=== PATIENT | female | born 1990 | race Caucasian/White ===

== ENCOUNTER 2018-04-02 06:57 | Inpatient (IN) | payer BC ==
[2018-04-02] MEDS ORDERED: METHYLERGONOVINE 0.2 MG/ML 1 ML AMP IM PRN (07:15)
[2018-04-02] MEDS ORDERED: OXYTOCIN 10 UNIT/ML 1 ML VIAL IM PRN (07:15)
[2018-04-02] MEDS ORDERED: OXYTOCIN 20 UNITS/1000 ML NS 1,000 ML IV SCH ×2 (07:15→15:45)
[2018-04-02] MEDS ORDERED: CARBOPROST TROMETHAMINE 250 MCG/ML 1 ML AMP IM PRN (07:15)
[2018-04-02] MEDS ORDERED: LIDOCAINE 0.5% (PF) 5 MG/ML (50 ML SDV) SQ PRN (07:15)
[2018-04-02] MEDS ORDERED: TERBUTALINE 1 MG/ML VIAL SQ PRN (07:15)
[2018-04-02 07:23] VITALS: BMI 25.0
[2018-04-02] MEDS: LACTATED RINGERS 1,000 ML IV SCH ×3 (07:30→15:09)
[2018-04-02 08:03] LABS: Basophils % (A) 0 %; Eosinophils # (A) 0.1 k/uL (0-0.7); Eosinophils % (A) 2 %; HCT 38.8 % (34.0-46.0); HGB 12.6 gm/dL (11.4-16.0); Lymphocytes # (A) 1.2 k/uL (1.0-4.8); Lymphocytes % (A) 18 %; MCH 30.2 pg (25.0-35.0); MCHC 32.4 g/dL (31.0-37.0); MCV 93.4 fL (80.0-100.0); Mean Platelet Volume 8.4; Monocytes # (A) 0.3 k/uL (0-1.0); Monocytes % (A) 5 %; Neutrophils % (A) 74 %; Platelet Count 167 k/uL (150-450); RBC 4.15 m/uL (3.80-5.40); RDW 14.8 % (11.5-15.5); WBC 6.7 k/uL (3.8-10.6)
--- NOTE | 2018-04-02 11:46 | P.HPOB ---
History of Present Illness H&P Date: 04/02/18 Chief Complaint: IUP at 39/one sevenths weeks, elective induction This is a very pleasant 28-year-old 2 para 0010 at 39 and one sevenths weeks that presents to labor and delivery for elective induction of labor. Patient lives greater than an hour away with favorable cervix we elected induction. Patient has been receiving routine care since the first trimester with myself. She has been without complaints. She is noting good movement, no contractions, no vaginal bleeding or loss of fluid. On blood work showed a blood type of O+, rubella immune, RPR nonreactive, hepatitis B surface antigen negative, HIV negative, she did pass her 1 hour Glucola screen, and received her Tdap Vaccination on 01/25, group beta strep was negative on 03/09. Review of Systems Constitutional: Denies chills, Denies fatigue, Denies fever Cardiovascular: Reports leg edema Respiratory: Denies cough, Denies dyspnea Gastrointestinal: Denies constipation, Denies diarrhea, Denies nausea, Denies vomiting Past Medical History Past Medical History: No Reported History History of Any Multi-Drug Resistant Organisms: None Reported Past Surgical History: No Surgical Hx Reported Past Anesthesia/Blood Transfusion Reactions: No Reported Reaction Past Psychological History: No Psychological Hx Reported Smoking Status: Never smoker Past Drug Use History: None Reported - Past Family History Mother Family Medical History: Cancer Additional Family Medical History / Comment(s): breast and panceratic. Medications and Allergies Home Medications Medication Instructions Recorded Confirmed Type Pnv No.111/Iron/Folate/Dha 1 cap PO DAILY 04/02/18 04/02/18 History [Nestabs One Softgel] Allergies Allergy/AdvReac Type Severity Reaction Status Date / Time No Known Allergies Allergy Verified 04/02/18 07:14 Exam Osteopathic Statement: *. No significant issues noted on an osteopathic structural exam other than those noted in the History and Physical/Consult. Vital Signs Temp Pulse Resp BP Pulse Ox 04/02/18 07:30 16 04/02/18 07:02 97.9 F 64 16 111/73 100 Intake and Output 04/01/18 04/02/18 04/02/18 22:59 06:59 14:59 Other: Voiding Method Toilet Weight 70.307 kg Targeted physical exam was performed on this date, and general this is a well- nourished well-developed alert female in no acute distress. Heart is noted to have a regular rate and rhythm, lungs are clear to auscultation bilaterally, abdomen is known to be gravid and appropriate for gestational age, on initial cervical exam she was 3, 70, -2 station amniotomy was performed and clear fluid was obtained, heart tones were noted to be reactive, with an irregular contraction Results Result Diagrams: 04/02/18 07:15 Assessment and Plan (1) Term Current Visit: Yes Status: Acute Code(s): Z34.80 - ENCOUNTER FOR SUPRVSN OF NORMAL , UNSP TRIMESTER SNOMED Code(s): 72096323 Plan: We'll plan Pitocin induction of labor, patient does desire epidural when uncomfortable and anesthesia will be notified at that time. Anticipate spontaneous vaginal delivery later today.
[2018-04-02] MEDS ORDERED: BUTORPHANOL 1 MG/ML 1 ML VIAL IV PRN (12:17)
[2018-04-02] MEDS ORDERED: SODIUM CHLORIDE 0.9% 100 ML BAG ONE (13:11)
[2018-04-02] MEDS ORDERED: ROPIVACAINE 5MG/ML 20ML VIAL ONE (13:11)
[2018-04-02] MEDS ORDERED: fentaNYL (PF) 50 MCG/ML 5 ML AMP ONE (13:11)
[2018-04-02] MEDS ORDERED: WITCH HAZEL 1 EACH MED..PAD TOPICAL PRN (15:34)
[2018-04-02] MEDS ORDERED: BENZOCAINE/MENTHOL SPRAY 1 GM/SPRAY AEROSOL TOPICAL PRN (15:34)
[2018-04-02] MEDS ORDERED: LANOLIN CREAM 5 GM TUBE TOPICAL PRN (15:34)
[2018-04-02] MEDS ORDERED: diphenhydrAMINE 50 MG/ML 1 ML VIAL IVP PRN ×2 (15:34)
[2018-04-02] MEDS ORDERED: SIMETHICONE 80 MG CHEWABLE PO PRN (15:34)
[2018-04-02] MEDS ORDERED: diphenhydrAMINE 50 MG CAP PO PRN (15:34)
[2018-04-02] MEDS ORDERED: ZOLPIDEM 5 MG TAB PO PRN (15:34)
[2018-04-02] MEDS ORDERED: diphenhydrAMINE 25 MG CAP PO PRN (15:34)
[2018-04-02] MEDS ORDERED: HYDROCORTISONE 2.5% RECTAL CREAM 30 GM TUBE RECTAL PRN (15:34)
[2018-04-02] MEDS ORDERED: ACETAMINOPHEN TAB 325 MG TAB PO PRN (15:34)
--- NOTE | 2018-04-02 15:37 | P.PROBDLV ---
Vaginal Delivery Note - . Vaginal Delivery Note: This is a pleasant 28-year-old 2 para 0010 at 39 and one sevenths weeks that presented to labor and delivery today for elective induction of labor. Patient lives an hour away from the hospital and desired induction. Patient was admitted to labor and delivery Pitocin induction of labor was begun. Once a good contraction pattern was noted amniotomy was performed and clear fluid was obtained. Patient progressed through labor eventually becoming uncomfortable and requesting an epidural. Epidural was placed by anesthesia without difficulty. Patient progressed to complete began pushing and had a normal spontaneous vaginal delivery of a viable male infant at 1452 weight of 7 lbs. 15 oz. Apgars of 9 and 9 at one and 5 minutes respectively. Afterwards inspection the patient's vaginal vault revealed a second-degree laceration with bilateral sulcal tears. This was repaired in the usual fashion with 3-0 Rapide. Prior to the repair the placenta was delivered spontaneously intact with three-vessel cord being noted. Afterwards hemostasis was appreciated. Rectal exam was performed in addition and normal sphincter tone along with rectal mucosa was noted. X Estimated blood loss 300 mL next Patient and infant tolerated delivery and are resting comfortably
[2018-04-02] MEDS: IBUPROFEN 600 MG TAB PO PRN (20:21)
[2018-04-02] MEDS: SENNOSIDES-DOCUSATE SODIUM 1 EACH TAB PO SCH (20:21)
[2018-04-03] MEDS: IBUPROFEN 600 MG TAB PO PRN ×2 (03:50→19:24)
[2018-04-03 07:08] LABS: Basophils % (A) 0 %; Eosinophils # (A) 0.1 k/uL (0-0.7); Eosinophils % (A) 1 %; HCT 32.9 % (34.0-46.0); HGB 10.9 gm/dL (11.4-16.0); Lymphocytes # (A) 1.2 k/uL (1.0-4.8); Lymphocytes % (A) 12 %; MCH 30.3 pg (25.0-35.0); MCHC 33.2 g/dL (31.0-37.0); MCV 91.4 fL (80.0-100.0); Mean Platelet Volume 8.5; Monocytes # (A) 0.6 k/uL (0-1.0); Monocytes % (A) 6 %; Neutrophils % (A) 80 %; Platelet Count 151 k/uL (150-450); RDW 14.6 % (11.5-15.5); WBC 10.1 k/uL (3.8-10.6)
[2018-04-03 08:23] VITALS: RESP 16
[2018-04-03] MEDS: SENNOSIDES-DOCUSATE SODIUM 1 EACH TAB PO SCH ×2 (08:30→19:23)
[2018-04-03] MEDS ORDERED: [UNRECOGNIZED DRUG - REMARK] PO SCH (09:00)
--- NOTE | 2018-04-03 09:01 | P.DS ---
Providers Date of admission: 04/02/18 06:57 Expected date of discharge: 04/03/18 Attending physician: Edita Vazquez Primary care physician: Stated None - Discharge Diagnosis(es) (1) Term Current Visit: Yes Status: Acute (2) Status post vaginal delivery Current Visit: Yes Status: Acute Hospital Course: This is a very pleasant 28-year-old 2 para 0010 at 39 and one sevenths weeks that presented to labor and delivery for elective induction of labor. Patient lives approximately an hour away from the hospital and desired induction. Patient was admitted to labor and delivery Pitocin induction of labor was begun amniotomy was performed after regular strong contractions were noted. Amniotic fluid was noted to be clear. Patient did become uncomfortable requesting an epidural which was placed by anesthesia without difficulty. Patient progressed to complete and had a normal spontaneous vaginal delivery of a viable male at 1452, weight 7 lbs. 15 oz. with Apgars of 9 and 9 at one and 5 minutes respectively. Patient did sustain a second-degree midline laceration with bilateral sulcal tears which was repaired in usual fashion with 3-0 Rapide. Patient's course has been uneventful. She is breast- feeding. She is tolerating regular diet without nausea or vomiting. She states her pain is well-controlled. She was like discharge home at 24 hours. Patient Condition at Discharge: Good Plan - Discharge Summary New Discharge Prescriptions: No Action Pnv No.111/Iron/Folate/Dha [Nestabs One Softgel] 1 cap PO DAILY Discharge Medication List Pnv No.111/Iron/Folate/Dha [Nestabs One Softgel] 1 cap PO DAILY 04/02/18 [ History] Follow up Appointment(s)/Referral(s): Edita Vazquez DO [Doctor of Osteopathic Medicine] - 4 Weeks Patient Instructions/Handouts: Vaginal Delivery (DC), Vaginal Delivery (GEN) Discharge Disposition: HOME SELF-CARE
[2018-04-04] MEDS: IBUPROFEN 600 MG TAB PO PRN ×2 (02:03→18:58)
[2018-04-04] MEDS: SENNOSIDES-DOCUSATE SODIUM 1 EACH TAB PO SCH (08:01)
--- NOTE | 2018-04-04 13:00 | P.PNOBGVD ---
Subjective - Subjective Principal diagnosis: PPD 2 Interval history: Patient has done well . She is ambulating and voiding without difficulty. She is tolerating a regular diet without nausea or vomiting. Is feeling well overall. She is breast-feeding. Infant was noted to have an elevated bilirubin therefore bili blanket/phototherapy was begun and discharge was canceled from yesterday. Patient states the is now nursing well since last evening. Lochia is minimal Patient reports: Reports appetite normal, Reports voiding normally, Reports pain well controlled, Reports ambulating normally : nursing well (In special care nursery on phototherapy) Objective - Latest Vital Signs Latest vital signs: Vital Signs Temp Pulse Resp BP 04/04/18 07:57 98.4 F 56 L 16 113/77 04/04/18 00:00 69 16 113/78 04/03/18 15:58 98.7 F 61 16 111/69 - Exam Lungs: bilateral: normal Extremities: Present: normal, edema Abdomen: Present: normal appearance, soft Uterus: Present: normal, firm Assessment and Plan (1) Term Current Visit: Yes Status: Acute Code(s): Z34.80 - ENCOUNTER FOR SUPRVSN OF NORMAL , UNSP TRIMESTER SNOMED Code(s): 07663180 (2) Status post vaginal delivery Current Visit: Yes Status: Acute Code(s): MAV2350 - SNOMED Code(s): 065623598 Plan: We'll plan discharge this afternoon, as infant is in special care nursery with phototherapy recommended patient stay at [facility] to be close to the hospital. She does live an hour away from the hospital. She is to call the office for a appointment in 4 weeks, discharge instructions are reviewed with the patient in detail if she has any concerns she is urged to call the office prior to her appointment.
[2018-04-04 15:57] VITALS: BP 116/74; PULSE 75; TEMP 97.8
--- NOTE | 2018-04-05 06:56 | P.PN ---
Progress Note - Text Progress Note Date: 04/03/18 patient evaluated post labor epidural placment denies any complaints primary team to follow anesthesia sign off
== END 2018-04-04 19:05 | disposition home or self-care (01) | DRG 807 ==
LOC: 4FBP 06:57
PROVIDERS: ADMIT Obstetrics & Gynecology Obstetrics; ATTEND Obstetrics & Gynecology Obstetrics
PROC: 10E0XZZ Delivery of Products of Conception, External Approach (ICD-10-PCS; principal; 2018-04-02)
PROC: 3E0R3NZ Introduction of Analgesics, Hypnotics, Sedatives into Spinal Canal, Percutaneous Approach (ICD-10-PCS; principal; 2018-04-02)
PROC: 10907ZC Drainage of Amniotic Fluid, Therapeutic from Products of Conception, Via Natural or Artificial Opening (ICD-10-PCS; principal; 2018-04-02)
PROC: 0KQM0ZZ Repair Perineum Muscle, Open Approach (ICD-10-PCS; principal; 2018-04-02)
PROC: 3E033VJ Introduction of Other Hormone into Peripheral Vein, Percutaneous Approach (ICD-10-PCS; principal; 2018-04-02)
PROC: 00HU33Z Insertion of Infusion Device into Spinal Canal, Percutaneous Approach (ICD-10-PCS; principal; 2018-04-02)
DX: O70.1 Second degree perineal laceration during delivery (principal); Z37.0 Single live birth; Z3A.39 39 weeks gestation of pregnancy
CPT/HCPCS: 85025; 86850; 86900; 86901

== ENCOUNTER 2020-12-13 06:00 | Inpatient (IN) | payer BC ==
[2020-12-13] MEDS ORDERED: LIDOCAINE 0.5% (PF) 5 MG/ML (50 ML SDV) SQ PRN (06:24)
[2020-12-13] MEDS ORDERED: OXYTOCIN 10 UNIT/ML 1 ML VIAL IM PRN (06:24)
[2020-12-13] MEDS ORDERED: METHYLERGONOVINE 0.2 MG/ML 1 ML AMP IM PRN (06:24)
[2020-12-13] MEDS ORDERED: TERBUTALINE 1 MG/ML VIAL SQ PRN (06:24)
[2020-12-13] MEDS ORDERED: CARBOPROST TROMETHAMINE 250 MCG/ML 1 ML AMP IM PRN (06:24)
[2020-12-13] MEDS ORDERED: OXYTOCIN 30 UNITS/500 ML NS 30 UNIT in SALINE 1 500ML.BAG IV SCH ×2 (06:30→12:45)
[2020-12-13 06:48] LABS: Basophils % (A) 0 %; Eosinophils # (A) 0.1 k/uL (0-0.7); Eosinophils % (A) 2 %; HCT 38.3 % (34.0-46.0); HGB 13.3 gm/dL (11.4-16.0); Lymphocytes # (A) 1.7 k/uL (1.0-4.8); Lymphocytes % (A) 20 %; MCH 33.1 pg (25.0-35.0); MCHC 34.8 g/dL (31.0-37.0); MCV 95.2 fL (80.0-100.0); Mean Platelet Volume 9.5; Monocytes # (A) 0.5 k/uL (0-1.0); Monocytes % (A) 5 %; Neutrophils # (A) 6.2 k/uL (1.3-7.7); Neutrophils % (A) 72 %; Platelet Count 178 k/uL (150-450); RBC 4.02 m/uL (3.80-5.40); RDW 13.9 % (11.5-15.5); WBC 8.7 k/uL (3.8-10.6)
[2020-12-13] MEDS ORDERED: BUTORPHANOL 1 MG/ML 1 ML VIAL IV PRN (08:44)
--- NOTE | 2020-12-13 08:44 | P.HPOB ---
History of Present Illness H&P Date: 12/13/20 Chief Complaint: IUP at 39-0/7 weeks This is a 30-year-old at 39 0/7 weeks that presents to labor and delivery for induction of labor. Patient has been receiving routine care with myself which is been essentially uncomplicated. Patient notes good movement, occasional contractions denies loss of fluid or vaginal bleeding. On bloodwork this patient is a blood type of O+, rubella status immune, B surface antigen negative, HIV negative, RPR is nonreactive, group beta strep cultures were noted to be negative. Review of Systems Constitutional: Denies chills, Denies fatigue, Denies fever Ears, nose, mouth and throat: Denies headache Cardiovascular: Reports leg edema Respiratory: Denies dyspnea Gastrointestinal: Denies constipation, Denies diarrhea, Denies nausea, Denies vomiting Genitourinary: Reports Past Medical History Past Medical History: No Reported History History of Any Multi-Drug Resistant Organisms: None Reported Past Surgical History: No Surgical Hx Reported Past Anesthesia/Blood Transfusion Reactions: No Reported Reaction Past Psychological History: No Psychological Hx Reported Smoking Status: Never smoker Past Drug Use History: None Reported - Past Family History Mother Family Medical History: Cancer Additional Family Medical History / Comment(s): breast and panceratic. Medications and Allergies Home Medications Medication Instructions Recorded Confirmed Type Pnv No.95/Ferrous Fum/Folic AC 1 tab PO DAILY 12/13/20 12/13/20 History [ Multivitamin Tablet] Allergies Allergy/AdvReac Type Severity Reaction Status Date / Time No Known Allergies Allergy Verified 12/13/20 06:23 Exam Osteopathic Statement: *. No significant issues noted on an osteopathic structural exam other than those noted in the History and Physical/Consult. 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 heart tones are noted to be category 1 and she is justyna every 2-3 minutes. On cervical exam she is 2/50/-2 station amniotomy is performed and clear fluid was obtained. Results Result Diagrams: 12/13/20 06:40 Assessment and Plan (1) Term Current Visit: No Status: Acute Code(s): Z34.80 - ENCOUNTER FOR SUPRVSN OF NORMAL , UNSP TRIMESTER SNOMED Code(s): 65095687 Plan: 30-year-old 011 at 39-0/7 weeks is admitted to labor and delivery for scheduled elective induction of labor. Patient lives about 1 hour from the hospital and desired induction of labor. Patient is admitted to labor and delivery and Pitocin induction of labor is begun per hospital protocol. Options for analgesia are discussed including epidural and Stadol. Patient will consider. Anticipate spontaneous vaginal delivery later today.
[2020-12-13] MEDS: PRENATAL VIT-IRON-FOLIC ACID 1 EACH CAP PO SCH (10:14)
[2020-12-13] MEDS: LACTATED RINGERS 1,000 ML IV SCH ×3 (10:14→23:14)
[2020-12-13] MEDS ORDERED: fentaNYL (PF) 50 MCG/ML 5 ML AMP ONE (11:39)
[2020-12-13] MEDS ORDERED: ROPIVACAINE 5MG/ML 20ML VIAL ONE (11:39)
[2020-12-13] MEDS ORDERED: SODIUM CHLORIDE 0.9% 100 ML BAG ONE (11:39)
[2020-12-13] MEDS ORDERED: diphenhydrAMINE 25 MG CAP PO PRN (12:34)
[2020-12-13] MEDS ORDERED: ZOLPIDEM 5 MG TAB PO PRN (12:34)
[2020-12-13] MEDS ORDERED: LANOLIN CREAM 5 GM TUBE TOPICAL PRN (12:34)
[2020-12-13] MEDS ORDERED: SIMETHICONE 80 MG CHEWABLE PO PRN (12:34)
[2020-12-13] MEDS ORDERED: diphenhydrAMINE 50 MG CAP PO PRN (12:34)
[2020-12-13] MEDS ORDERED: BENZOCAINE/MENTHOL SPRAY 1 GM/SPRAY AEROSOL TOPICAL PRN (12:34)
[2020-12-13] MEDS ORDERED: diphenhydrAMINE 50 MG/ML 1 ML VIAL IVP PRN ×2 (12:34)
[2020-12-13] MEDS ORDERED: HYDROCORTISONE 2.5% RECTAL CREAM 30 GM TUBE RECTAL PRN (12:34)
[2020-12-13] MEDS ORDERED: ACETAMINOPHEN TAB 325 MG TAB PO PRN (12:34)
--- NOTE | 2020-12-13 12:37 | P.PROBDLV ---
Vaginal Delivery Note - . Vaginal Delivery Note: This is a 30-year-old 3 para 1011 that presented to labor and delivery at 39-0/7 weeks for scheduled elective induction of labor. Patient lives approximately 1 hour from the hospital and desired induction of labor. Patient has been receiving routine care which has been essentially uncomplicated. Patient was admitted to labor and delivery Pitocin induction of labor was begun. Once regular contractions were appreciated amniotomy was performed and clear fluid was obtained. Patient progressed through labor eventually becoming uncomfortable and requested 1 dose of Stadol. Patient did make cervical change and elected epidural. Epidural was placed by the anesthesia department. Patient was noted to be completely dilated once epidural placement was complete. Patient began pushing and had a normal spontaneous vaginal delivery of a viable female infant at 1217, weight of 6 lbs. 7 oz. and Apgars of 8 and 9 at one and 5 minutes respectively. After two-minute delay the umbilical cord was doubly clamped and cut. The placentas handed to the maternal abdomen. The placenta was then delivered spontaneously intact with a three- vessel cord being noted. On inspection the patient's vaginal vault a secondary midline laceration was appreciated and repaired in the usual fashion with 3-0 repeat after instillation of lidocaine. Uterus is noted to be firm and below the umbilicus after delivery. Rectal exam was completed after the delivery and found to be normal in nature. All counts are noted to be correct 2 within the delivery. Estimated blood loss 200 mL. Patient and infant tolerated delivery well and are resting comfortably.
[2020-12-13] MEDS ORDERED: ROPIVACAINE 100 MG, fentaNYL (PF). 200 MCG in SODIUM CHLORIDE 0.9% 76 ML EPIDURAL ONE (12:41)
[2020-12-13] MEDS: IBUPROFEN 600 MG TAB PO PRN ×2 (12:47→19:00)
[2020-12-13] MEDS: SENNOSIDES-DOCUSATE SODIUM 1 EACH TAB PO SCH (20:39)
[2020-12-14] MEDS: SENNOSIDES-DOCUSATE SODIUM 1 EACH TAB PO SCH ×2 (07:45→19:38)
[2020-12-14] MEDS: PRENATAL VIT-IRON-FOLIC ACID 1 EACH CAP PO SCH (07:46)
[2020-12-14] MEDS: IBUPROFEN 600 MG TAB PO PRN ×2 (07:46→17:46)
--- NOTE | 2020-12-14 10:58 | P.DS ---
Providers Date of admission: 12/13/20 06:06 Expected date of discharge: 12/14/20 Attending physician: Edita Vazquez Primary care physician: Stated None - Discharge Diagnosis(es) (1) Term Current Visit: No Status: Acute (2) Obstetric vaginal laceration with second degree perineal laceration Current Visit: Yes Status: Acute (3) Status post vaginal delivery Current Visit: No Status: Acute Hospital Course: 30-year-old 011 that presented to labor and delivery yesterday at 39 0/7 weeks for scheduled induction of labor. Patient lives approximately 1 hour from the hospital desired induction of labor. Patient was admitted Pitocin induction of labor was begun per hospital protocol. Patient progressed in labor underwent amniotomy and clear fluid was obtained. Patient did desire epidural placement w hich was placed by the anesthesia Department without difficulty. Patient quickly progressed to complete began pushing and had a normal spontaneous vaginal delivery of a viable female infant at 1217, weight of 6 lbs. 7 oz. and Apgars of 8 and 9 at one and 5 minutes respect weight. Patient did sustain a second-degree midline laceration during delivery which was repaired in usual fashion with 3-0 Rapide. Patient has done well . She is ambulating and voiding without difficulty. Her lochia is found to be moderate. Her pain is well-controlled with IV ibuprofen. She is breast-feeding. She is hoping for discharge at 24 hours, her prior son needed phototherapy for jaundice. Awaiting TCB and pediatric discharge before discharging mom. Patient Condition at Discharge: Good Plan - Discharge Summary New Discharge Prescriptions: No Action Pnv No.95/Ferrous Fum/Folic AC [ Multivitamin Tablet] 1 tab PO DAILY Discharge Medication List Pnv No.95/Ferrous Fum/Folic AC [ Multivitamin Tablet] 1 tab PO DAILY 12/13/20 [History] Follow up Appointment(s)/Referral(s): Edita Vazquez DO [Doctor of Osteopathic Medicine] - 4 Weeks Patient Instructions/Handouts: Vaginal Delivery (GEN), Vaginal Delivery (DC) Activity/Diet/Wound Care/Special Instructions: Patient can expect moderate to heavy period like bleeding postdelivery. [id number] ibuprofen 3-6 as needed for pain. Patient is to follow-up in 4 weeks for routine care. Should she have any concerns prior to this appointment she is urged to call the office. Discharge Disposition: HOME SELF-CARE
[2020-12-15] MEDS: IBUPROFEN 600 MG TAB PO PRN ×2 (00:29→06:46)
[2020-12-15] MEDS: SENNOSIDES-DOCUSATE SODIUM 1 EACH TAB PO SCH (08:24)
[2020-12-15 08:31] VITALS: BP 96/65; PULSE 53; RESP 16; TEMP 97.8
--- NOTE | 2020-12-15 11:10 | P.PNOBGVD ---
Subjective - Subjective Principal diagnosis: PPD 2 Interval history: Patient is doing well. She is a billing and voiding without difficulty. Pain is well-controlled. Breast feeding is going well. has been discharged from pediatrics standpoint and patient wishes to be discharged home. Patient reports: Reports appetite normal, Reports voiding normally, Reports pain well controlled, Reports ambulating normally [place]: doing well, nursing well Objective - Latest Vital Signs Latest vital signs: Vital Signs Temp Pulse Resp BP Pulse Ox 12/15/20 08:00 97.8 F 53 L 16 96/65 100 12/15/20 00:54 97.6 F 48 L 12 98/61 12/15/20 00:00 12 12/14/20 11:38 98.2 F 65 18 103/66 Intake and Output 12/14/20 12/15/20 12/15/20 22:59 06:59 14:59 Intake Total 300 Balance 300 Intake: Oral 300 Other: Voiding Method Toilet Toilet # Voids 1 2 1 - Exam Extremities: Absent: edema Abdomen: Present: normal appearance, soft Uterus: Present: normal, firm Assessment and Plan (1) Term Current Visit: No Status: Acute Code(s): Z34.80 - ENCOUNTER FOR SUPRVSN OF NORMAL , UNSP TRIMESTER SNOMED Code(s): 95854807 (2) Obstetric vaginal laceration with second degree perineal laceration Current Visit: Yes Status: Acute Code(s): O70.1 - SECOND DEGREE PERINEAL LACERATION DURING DELIVERY SNOMED Code(s): 692071930 (3) Status post vaginal delivery Current Visit: No Status: Acute Code(s): JGD9059 - SNOMED Code(s): 359300707 Plan: 30-year-old G3 now P2 012 status post normal spontaneous vaginal delivery. Patient is doing well. Plan discharge home with routine follow-up in 4 weeks. Should patient have any concerns prior to her visit she is to call the office.
== END 2020-12-15 11:25 | disposition home or self-care (01) | DRG 807 ==
LOC: 4FBP 06:06
PROVIDERS: ADMIT Obstetrics & Gynecology Obstetrics; ATTEND Obstetrics & Gynecology Obstetrics
PROC: 10E0XZZ Delivery of Products of Conception, External Approach (ICD-10-PCS; principal; 2020-12-13)
PROC: 0KQM0ZZ Repair Perineum Muscle, Open Approach (ICD-10-PCS; 2020-12-13)
PROC: 3E033VJ Introduction of Other Hormone into Peripheral Vein, Percutaneous Approach (ICD-10-PCS; 2020-12-13)
DX: O70.1 Second degree perineal laceration during delivery (principal); Z37.0 Single live birth; Z3A.39 39 weeks gestation of pregnancy
CPT/HCPCS: 85025; 86850; 86900; 86901

== ENCOUNTER 2023-03-10 14:39 | Inpatient (IN) | payer BC ==
[2023-03-10] MEDS: LACTATED RINGERS 1,000 ML IV SCH ×4 (16:25→21:01)
[2023-03-10] MEDS ORDERED: TRANEXAMIC 1,000 MG/100ML-NACL 1,000 MG in EMPTY BAG 1 BAG IV PRN (17:28)
[2023-03-10] MEDS ORDERED: CARBOPROST TROMETHAMINE 250 MCG/ML 1 ML AMP IM PRN (17:28)
[2023-03-10] MEDS ORDERED: TERBUTALINE 1 MG/ML VIAL SQ PRN (17:28)
[2023-03-10] MEDS ORDERED: OXYTOCIN 10 UNIT/ML 1 ML VIAL IM PRN (17:28)
[2023-03-10] MEDS ORDERED: AMPICILLIN 2,000 MG in SODIUM CHLORIDE 0.9% 100 ML IVPB STA (17:28)
[2023-03-10] MEDS ORDERED: miSOPROStoL 200 MCG TAB PO PRN (17:28)
[2023-03-10] MEDS ORDERED: LIDOCAINE 0.5% (PF) 5 MG/ML (50 ML SDV) SQ PRN (17:28)
[2023-03-10] MEDS ORDERED: METHYLERGONOVINE 0.2 MG/ML 1 ML AMP IM PRN (17:28)
[2023-03-10] MEDS ORDERED: OXYTOCIN 30 UNITS/500 ML NS 30 UNIT in SALINE 1 500ML.BAG IV SCH (17:30)
[2023-03-10 18:26] LABS: Basophils % (A) 0 %; Eosinophils % (A) 1 %; HCT 39.9 % (34.0-46.0); HGB 13.7 gm/dL (11.4-16.0); Lymphocytes % (A) 13 %; MCH 33.2 pg (25.0-35.0); MCHC 34.3 g/dL (31.0-37.0); MCV 96.8 fL (80.0-100.0); Mean Platelet Volume 10.8; Monocytes # (A) 0.4 k/uL (0-1.0); Monocytes % (A) 5 %; Neutrophils # (A) 6.2 k/uL (1.3-7.7); Neutrophils % (A) 79 %; Platelet Count 165 k/uL (150-450); RBC 4.12 m/uL (3.80-5.40); RDW 13.5 % (11.5-15.5); WBC 7.8 k/uL (3.8-10.6)
[2023-03-10] MEDS: AMPICILLIN 1,000 MG in SODIUM CHLORIDE 0.9% 50 ML IVPB SCH (21:52)
[2023-03-11] MEDS: AMPICILLIN 1,000 MG in SODIUM CHLORIDE 0.9% 50 ML IVPB SCH ×3 (02:25→10:23)
[2023-03-11] MEDS: LACTATED RINGERS 1,000 ML IV SCH ×3 (02:26→09:22)
--- NOTE | 2023-03-11 08:44 | P.HPOB ---
History of Present Illness H&P Date: 03/11/23 Chief Complaint: IUP @ 39 weeks, latent labor This is a 33-year-old at 39 and one sevenths weeks that presented to labor and delivery with complaints of regular painful contractions last evening. Patient states contractions started in the morning and became regular and uncomfortable. Patient presented to labor and delivery and was monitored for several hours with regular painful contractions and no cervical change. Patient was observed overnight as she lives an hour from the hospital. Patient has been receiving routine care with myself. Patient has a known blood type of O+, rubella status immune, hepatitis B surface antigen negative, HIV negative, group beta strep culture was positive. Review of Systems Constitutional: Reports fatigue, Denies chills, Denies fever Ears, nose, mouth and throat: Denies headache Cardiovascular: Denies leg edema Respiratory: Denies dyspnea Gastrointestinal: Denies constipation, Denies diarrhea, Denies nausea, Denies vomiting Genitourinary: Reports Past Medical History Past Medical History: No Reported History History of Any Multi-Drug Resistant Organisms: None Reported Past Surgical History: No Surgical Hx Reported Past Anesthesia/Blood Transfusion Reactions: No Reported Reaction Past Psychological History: No Psychological Hx Reported Smoking Status: Never smoker Past Drug Use History: None Reported - Past Family History Mother Family Medical History: Cancer Additional Family Medical History / Comment(s): breast and panceratic. Medications and Allergies Home Medications Medication Instructions Recorded Confirmed Type Pnv No.95/Ferrous Fum/Folic AC 1 tab PO DAILY 12/13/20 12/13/20 History [ Multivitamin Tablet] Allergies Allergy/AdvReac Type Severity Reaction Status Date / Time shellfish derived [Shellfish] Allergy Itching Verified 03/10/23 14:54 Exam Osteopathic Statement: *. No significant issues noted on an osteopathic structural exam other than those noted in the History and Physical/Consult. 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 heart tones noted to be category 1 and she is justyna every 2-3 minutes. Results Result Diagrams: 03/10/23 16:26 Assessment and Plan (1) Term Current Visit: No Status: Acute Code(s): Z34.80 - ENCOUNTER FOR SUPRVSN OF NORMAL , UNSP TRIMESTER SNOMED Code(s): 79016261 (2) Positive GBS test Current Visit: Yes Status: Acute Code(s): B95.1 - STREPTOCOCCUS, GROUP B, CAUSING DISEASES [facility] SNOMED Code(s): 829991458 Plan: 33-year-old at 39 and one sevenths weeks presents in latent labor, patient was observed overnight and Pitocin augmentation of labor was begun this morning. Amniotomy was performed clear fluid was obtained. Patient was treated with ampicillin for known group B beta strep positive rectovaginal culture. Patient does desire epidural, anesthesia will be notified when she requests this. Anticipate spontaneous vaginal delivery later today.
[2023-03-11] MEDS ORDERED: ROPIVACAINE 5 MG/ML 30 ML VIAL ONE (09:35)
[2023-03-11] MEDS ORDERED: SODIUM CHLORIDE 0.9% 250 ML BAG ONE (09:35)
[2023-03-11] MEDS ORDERED: fentaNYL (PF) 50 MCG/ML 5 ML AMP ONE (09:35)
[2023-03-11] MEDS ORDERED: LANOLIN CREAM 5 GM TUBE TOPICAL PRN (10:16)
[2023-03-11] MEDS ORDERED: ZOLPIDEM 5 MG TAB PO PRN (10:16)
[2023-03-11] MEDS ORDERED: BENZOCAINE/MENTHOL SPRAY 1 GM/SPRAY AEROSOL TOPICAL PRN (10:16)
[2023-03-11] MEDS ORDERED: SIMETHICONE 80 MG CHEWABLE PO PRN (10:16)
[2023-03-11] MEDS ORDERED: ACETAMINOPHEN TAB 325 MG TAB PO PRN (10:16)
[2023-03-11] MEDS ORDERED: HYDROCORTISONE 2.5% RECTAL CREAM 30 GM TUBE RECTAL PRN (10:16)
[2023-03-11] MEDS ORDERED: diphenhydrAMINE 50 MG/ML 1 ML VIAL IVP PRN ×2 (10:16)
[2023-03-11] MEDS ORDERED: diphenhydrAMINE 25 MG CAP PO PRN (10:16)
[2023-03-11] MEDS ORDERED: diphenhydrAMINE 50 MG CAP PO PRN (10:16)
--- NOTE | 2023-03-11 10:20 | P.PROBDLV ---
Vaginal Delivery Note - . Vaginal Delivery Note: This is a 33-year-old that presented to labor and delivery at 39 and one sevenths weeks with complaints of regular painful contractions. Patient did not have noted cervical change yesterday but given the proximity of her house to the hospital, greater than 1 hour recommendation for observation overnight given her contractions. Patient was noted be 4 cm this morning and Pitocin augmentation of labor was begun. Amniotomy is performed and clear fluid was obtained. Patient did quickly become uncomfortable and requested epidural placement. Anesthesia was notified into place the test us before she felt the urge to push. When patient was examined she was noted to be completely dilated. With excellent maternal effort patient had a normal spontaneous vaginal delivery of a viable male infant at 955, weight of 7 pounds 14.8 ounces, Apgars of 9 and 9 at one and 5 minutes respectively. After two-minute delayed the umbilical cord was doubly clamped and cut and the placenta was delivered spontaneously intact with a three-vessel cord being noted. Uterus was noted to be firm and below the umbilicus at that time. Inspection the patient's vaginal vault a second-degree laceration was appreciated. This was injected with lidocaine repaired in usual fashion with 3-0 Rapide. Hemostasis was appreciated after closure. All counts were noted to be correct 2 at the delivery. Patient and infant tolerated delivery well and are resting comfortably.
[2023-03-11] MEDS: IBUPROFEN 600 MG TAB PO SCH ×2 (10:53→18:30)
[2023-03-11 11:08] VITALS: RESP 16
[2023-03-11] MEDS: SENNOSIDES-DOCUSATE SODIUM 1 EACH TAB PO SCH (19:47)
[2023-03-12] MEDS: IBUPROFEN 600 MG TAB PO SCH ×2 (00:02→08:40)
[2023-03-12] MEDS: SENNOSIDES-DOCUSATE SODIUM 1 EACH TAB PO SCH (08:40)
[2023-03-12] MEDS ORDERED: PRENATAL VIT-IRON-FOLIC ACID 1 EACH TABLET PO SCH (09:00)
[2023-03-12 09:13] VITALS: BP 107/70; PULSE 67; TEMP 98
--- NOTE | 2023-03-12 10:57 | P.DS ---
Providers Date of admission: 03/10/23 17:18 Expected date of discharge: 03/12/23 Attending physician: Edita Vazquez Primary care physician: Stated None - Discharge Diagnosis(es) (1) Term Current Visit: No Status: Acute (2) Positive GBS test Current Visit: Yes Status: Acute (3) Obstetric vaginal laceration with second degree perineal laceration Current Visit: No Status: Acute (4) Status post vaginal delivery Current Visit: No Status: Acute Hospital Course: This is a 33-year-old she 3 P2 002 at 39 and one sevenths weeks that presented to labor and delivery with complaints of regular painful contractions. Patient did not make cervical change be given the length approximately to the hospital patient was observed overnight. Pitocin augmentation late of labor was begun in the morning and amniotomy was performed. Copious clear fluid was obtained. Patient did request epidural. Epidural was placed test dose was given and patient had a strong urge to push. Upon examination patient was noted to be completely dilated. With excellent maternal effort patient had a normal spontaneous vaginal delivery of a viable male infant at 955, weight of 7 pounds 14.8 ounces, Apgars of 9 and 9 at one and 5 minutes respectively. Patient did sustain a second-degree vaginal laceration during delivery. This was repaired in the usual fashion with 3-0 Rapide. Patient's course has been uneventful. On this day #1 she is ambulating and voiding without difficulty. She is tolerating a regular diet without nausea or vomiting. She states her pain is well-controlled. She notes her lochia be minimal. She is breast feeding. She would like discharge home at 24 hours if possible. Patient Condition at Discharge: Good Plan - Discharge Summary New Discharge Prescriptions: No Action Pnv No.95/Ferrous Fum/Folic AC [ Multivitamin Tablet] 1 tab PO DAILY Discharge Medication List Pnv No.95/Ferrous Fum/Folic AC [ Multivitamin Tablet] 1 tab PO DAILY 12/13/20 [History]
== END 2023-03-12 13:02 | disposition home or self-care (01) | DRG 807 ==
LOC: FBPOP 14:39 → 4FBP 17:18 → OBSVTOIN 17:18 → 4FBP 20:01
PROVIDERS: ADMIT Obstetrics & Gynecology Obstetrics; ATTEND Obstetrics & Gynecology Obstetrics
PROC: 10907ZC Drainage of Amniotic Fluid, Therapeutic from Products of Conception, Via Natural or Artificial Opening (ICD-10-PCS; 2023-03-10)
PROC: 10E0XZZ Delivery of Products of Conception, External Approach (ICD-10-PCS; principal; 2023-03-11)
PROC: 0KQM0ZZ Repair Perineum Muscle, Open Approach (ICD-10-PCS; 2023-03-11)
DX: O99.824 Streptococcus B carrier state complicating childbirth (principal); Z37.0 Single live birth; O70.1 Second degree perineal laceration during delivery; Z3A.39 39 weeks gestation of pregnancy
CPT/HCPCS: 59025; 85025; 86850; 86900; 86901; 96365; 99214